=== PATIENT | female | born 2000 | race Two or more races ===

== ENCOUNTER 2023-05-10 13:17 | Emergency (ER) | payer OTHER ==
[~2023-05-10] VITALS: Ht 152.4 cm; Wt 62.1 kg
[2023-05-10] MEDS ORDERED: PAXLOVID 300-11 EACH PO (15:50)
== END 2023-05-10 16:02 | disposition home or self-care (01) ==
LOC: ER 13:17
DX: O98.511 Other viral diseases complicating pregnancy, first trimester (principal); U07.1 COVID-19; Z3A.09 9 weeks gestation of pregnancy

== ENCOUNTER 2023-05-16 13:22 | Emergency (ER) | payer OTHER ==
[~2023-05-16] VITALS: Ht 177.8 cm; Wt 62.1 kg
[~2023-05-16 13:22] MED LIST: PAXLOVID 300-11 EACH PO
== END 2023-05-16 17:28 | disposition home or self-care (01) ==
LOC: ER 13:22
DX: O20.8 Other hemorrhage in early pregnancy (principal); Z3A.10 10 weeks gestation of pregnancy

== ENCOUNTER 2023-12-03 05:28 | Inpatient (IN) | payer OTHER ==
[~2023-12-03] VITALS: Ht 177.8 cm; Wt 77.1 kg
[2023-12-03] MEDS ORDERED: OBSTETRIX ONE1 EAC1 PO (06:18)
[2023-12-03 06:29] LABS: URINE APPEARANCE Clear; URINE BILIRRUBIN Negative (NEGATIVE); URINE BLOOD Negative; URINE COLOR Yellow; URINE GLUCOSE Negative (NEGATIVE); URINE LEUKOCYTE Negative; URINE NITRATE Negative; URINE PROTEIN Negative (NEGATIVE); URINE UROBILINOGEN 0.2 E.U./dl
[2023-12-03 06:34] LABS: URINE BACTERIA 619.7 uL (0.0-1933); URINE EPITHELIAL CELLS 44.2 uL (0.0-38.8); URINE WBC 12.2 uL (0.0-23.2)
[2023-12-03 06:40] LABS: HEMATOCRIT 34.2 % (36.0-45.00); HEMOGLOBIN 11.5 g/dL (12.0-15.00); MEAN CELL VOLUME 90.1 fL (80.00-100.00); MEAN CORPUSCULAR HEMOGLOBIN 30.4 pg (27.00-32.0); MEAN CORPUSCULAR HGB CONC 33.8 g/dl (32.0-36.0); PLATELET COUNT 209 K/uL (150-450); RED BLOOD COUNT 3.79 M/uL (4.00-6.00); RED CELL DISTRIBUTION WIDTH 13.4 % (11.5-14.5)
[2023-12-03 06:46] LABS: URINE RBC 0.7 uL (0.0-20.8)
[2023-12-03 07:08] LABS: INR 0.98; PROTHROMBIN TIME 10.3 SECONDS (9.0-11.5)
[2023-12-03 07:17] LABS: ALBUMIN 2.9 gm/dL (3.4-5.0); BILIRUBIN TOTAL 0.31 mg/dL (0.3-1.2); CALCIUM 8.5 mg/dL (8.5-10.1); CREATININE SERUM 0.56 mg/dL (0.55-1.02); GFR 134.15; GLOBULINA 3.6 G/DL (2.4-3.5); POTASSIUM 3.99 mEq/L (3.5-5.1); TOTAL PROTEIN 6.5 gm/dL (6.4-8.2)
[2023-12-03 20:46] LABS: ABG PH 7.415 (7.35-7.45); ABG pCO2 34.6 mmHg (35-45); SaO2 83.5 %
[2023-12-03 20:47] LABS: ABG PO2 47.6 mmHg (80-100); BASE EXCESS -2.1 mmol/l; BICARBONATE 21.7 mmol/l (23-25); Tco2 22.7 mmol/l; o2 21 %
== END 2023-12-05 15:31 | disposition home or self-care (01) | DRG 807 ==
LOC: LDR 05:28 → OB/GYN 05:28
PROVIDERS: ADMIT Specialist; ATTEND Specialist
PROC: 10E0XZZ Delivery of Products of Conception, External Approach (ICD-10-PCS; principal; 2023-12-03)
PROC: 4A1HXCZ Monitoring of Products of Conception, Cardiac Rate, External Approach (ICD-10-PCS; 2023-12-03)
DX: O80 Encounter for full-term uncomplicated delivery (principal); Z37.0 Single live birth; Z3A.39 39 weeks gestation of pregnancy; Z20.822 Contact with and (suspected) exposure to COVID-19